=== PATIENT | female | born 1985 ===

== ENCOUNTER 2016-06-21 12:54 | Inpatient (IN) | payer MEDICAID, OTHER ==
[2016-06-21] MEDS ORDERED: IV START KIT ONE (13:06)
[2016-06-21] MEDS ORDERED: LACTATED RINGERS 1,000 ML ONE (13:06)
[2016-06-21] MEDS ORDERED: LIDOCAINE 1% (PRES FREE) 30 ML VIAL ONE (13:06)
[2016-06-21] MEDS ORDERED: OXYTOCIN 10 UNITS/ML VIAL ONE (13:06)
[2016-06-21] MEDS ORDERED: MINERAL OIL 25 ML BOT ONE (13:06)
[2016-06-21] MEDS ORDERED: LIDOCAINE Viscous 2% 15 ML UDCUP ONE (13:06)
[2016-06-21] MEDS ORDERED: PUMP TUBING ONE (13:07)
[2016-06-21] MEDS ORDERED: OXYTOCIN IN LR 500 ML IV ONE ×2 (13:07→14:43)
[2016-06-21 14:10] VITALS: BMI 33.6
[2016-06-21] MEDS ORDERED: LACTATED RINGERS 1,000 ML IV PRN (14:43)
[2016-06-21] MEDS ORDERED: OXYTOCIN IN LR 500 ML IV PRN (14:45)
[2016-06-21] MEDS: LACTATED RINGERS 1,000 ML IV SCH ×2 (15:17→19:51)
[2016-06-21 15:49] LABS: HEMATOCRIT 34.4 % (37.0-47.0); HEMOGLOBIN 11.7 gm/l (12.0-16.0); MEAN CELL VOLUME 96.6 fl (81.0-99.0); MEAN CORPUSCULAR HEMOGLOBIN 32.9 pg (27.0-31.0); RED CELL DISTRIBUTION WIDTH 12.6 % (11.5-14.5)
--- NOTE | 2016-06-21 17:05 | PCMAN ---
OB Admission Note - History : 6 Term: 3 : 0 Abortions (S&E): 2 Livin Gestational Age (weeks): 36 Days (#/7): 6 Admit Cervical Dilation:: 3 Admit Cervical Effacement (%):: 50 Admit Station:: -2 Admit Presentaton:: vertex Membrane Status: Intact Contractions: No Heart Rate:: 140 Status:: cat 1 EFW:: 7 lbs Summary of Course:: care in [place]. Arrived here at 35 weeks. Has cholestasis,and is on actigall. No other complications. Past ob Hx: sab 02/28 term , at 1 years 07/03 41 02/07 27 weeks , cholestasis - Labs Blood Type: O (+) positive Hct/Hgb:: Rubella Status: Immune GBS Status: Negative Abnormal Labs: None - Physical Exam General: Afebrile Psych/Mental Status: Mood/Affect Appropriate Neurological: Alert Lungs: Clear to Auscultation Bilaterally Cardiovascular: Regular Rate and Rhythm Abdomen: Normal Bowel Sounds Genitourinary: Normal Female Genitalia Rectal Exam: Deferred Extremities: Other (nt, no edema) Skin: Normal Color - Problems (1) Cholestasis during in third trimester Status: Acute Code: O26.613Assessment/Plan: IOL at 37 weeks, plan Pitocin (2) Term Status: Acute Code: Z34.80
[2016-06-21] MEDS ORDERED: FENTANYL/ROPIVACAINE EPIDURAL 250 ML EP ONE (19:02)
[2016-06-21] MEDS ORDERED: EPIDURAL PUMP SET ONE (19:02)
[2016-06-21] MEDS ORDERED: EPIDURAL PROCEDURE TRAY ONE (19:31)
[2016-06-21] MEDS ORDERED: SODIUM CHLORIDE 0.9% 500 ML IV PRN (20:00)
[2016-06-21] MEDS ORDERED: LACTATED RINGERS 500 ML IV PRN (20:00)
[2016-06-21] MEDS ORDERED: EPHEDRINE SULFATE 50 MG/ML 1ML VIAL IV PRN (20:00)
[2016-06-21] MEDS ORDERED: FENTANYL/ROPIVACAINE EPIDURAL 250 ML EP SCH (20:00)
[2016-06-21] MEDS ORDERED: METOCLOPRAMIDE HCL 5 MG/ML 2ML VIAL IV PRN (20:00)
[2016-06-21] MEDS ORDERED: NALBUPHINE HCL 20 MG/ML AMP IV PRN (20:00)
[2016-06-21] MEDS ORDERED: DIPHENHYDRAMINE HCL 50 MG/1 ML VIAL IV PRN (20:00)
[2016-06-21] MEDS ORDERED: NALOXONE HCL 0.4 MG/ML VIAL IV PRN (20:00)
[2016-06-21] MEDS ORDERED: LACTATED RINGERS 1,000 ML IV SCH (20:00)
[2016-06-21] MEDS ORDERED: ONDANSETRON 4 MG/2ML 2 ML VIAL IV PRN (20:00)
[2016-06-21] MEDS ORDERED: LANOLIN 50 APPLIC/7G TUBE TP PRN (21:25)
[2016-06-21] MEDS ORDERED: BENZOCAINE/MENTHOL 60 APPLIC/BOT TP PRN (21:25)
--- NOTE | 2016-06-21 21:28 | PCMDEL ---
Delivery Note - Labor 1st stage (hr/min):: 2 hours 3 min 2nd stage (hr/min):: 12 min 3rd stage (hr/min):: 4 min Total (hr/min):: 2 hours 19 min Pushed (hr/min):: 1 min - Delivery Delivery (Date): 06/21/16 Delivery (Time): 21:12 Infant Gender: Female Presentation: Cephalic Umbilical Cord: 3 Vessel Delayed Cord Clamping:: > 3 min 1 Minute Total: 9 5 Minute Total: 9 Placenta:: normal EBL:: 200 ml Perineum:: intact Suture:: n/a Anesthesia/Meds:: epidural Length ROM:: 4 hours Comments:: vigorous female, no complications
[2016-06-22] MEDS: IBUPROFEN 800 MG TABLET PO PRN ×4 (00:15→20:36)
[2016-06-22] MEDS: HYDROCODONE/ACETAMINOPHEN 5/325MG TABLET PO PRN ×4 (01:40→20:36)
[2016-06-22 06:57] LABS: HEMATOCRIT 31.3 % (37.0-47.0); HEMOGLOBIN 10.7 gm/l (12.0-16.0)
[2016-06-22] MEDS: DOCUSATE SODIUM 100 MG CAPSULE PO PRN (07:50)
--- NOTE | 2016-06-22 16:12 | PDOC44 ---
- Subjective Day: 1 Reports Pain Tolerable - Objective Temp Pulse Resp BP Pulse Ox 98.4 F 90 18 94/62 06/22/16 13:54 06/22/16 13:54 06/22/16 13:54 06/22/16 13:54 Lab Results 06/22/16 06/21/16 06:00 15:15 WBC 13.0 H RBC 3.56 L Hgb 10.7 L 11.7 L Hct 31.3 L 34.4 L Plt Count 320 06/21/16 15:15 MCH 32.9 H Current Medications Generic Name Dose Route Start Last Admin Trade Name Freq PRN Reason Stop Dose Admin Acetaminophen/Hydrocodone Bitart 1 - 2 tab 06/21/16 21:25 06/22/16 14:05 [place] 5/325 PO 1 tab Q4H PRN Administration Pain (Moderate) Benzocaine/Menthol 1 applic 06/21/16 21:25 Dermoplast TP PRN PRN Patient Comfort Docusate Sodium 100 mg 06/21/16 21:25 06/22/16 07:50 Colace PO 100 mg DAILY PRN Administration Comfort Emollient Ointment 1 applic 06/21/16 21:25 [id number]-S-Bmzuzs TP PRN PRN sore nipples Ropivacaine/Fentanyl/NS 250 mls @ 0 mls/hr 06/21/16 20:00 06/21/16 19:49 Fentanyl 2 Mcg/Ml + Ropivacaine 0.125% Ep Bag EP 12 mls/hr EPI RAMÓN Administration Protocol Per Protocol Ibuprofen 800 mg 06/21/16 21:25 06/22/16 14:05 Motrin PO 800 mg Q6H PRN Administration Pain (Mild) Sodium Chloride 10 ml 06/21/16 21:25 06/21/16 22:14 Normal Saline 10ml Flush IV 10 ml PRN PRN Administration IV Flush - Physical Exam General: Afebrile Psych/Mental Status: Mood/Affect Appropriate Neurological: Oriented x 4 Lungs: Clear to Auscultation Bilaterally Cardiovascular: Regular Rate and Rhythm Fundus: Firm, Below Umbilicus - Problems:Assessment/Plan (1) Vaginal delivery Status: AcuteAssessment/Plan: Doing well Normal exam Continue routine care Disposition: Stable
[2016-06-23] MEDS: IBUPROFEN 800 MG TABLET PO PRN (05:13)
[2016-06-23] MEDS: HYDROCODONE/ACETAMINOPHEN 5/325MG TABLET PO PRN (05:13)
[2016-06-23] MEDS: DOCUSATE SODIUM 100 MG CAPSULE PO PRN (07:36)
[2016-06-23 07:39] VITALS: BP 77/45
--- NOTE | 2016-06-23 10:22 | PDOC39B ---
Hospital Course: ADMIT DATE: 06/21/16 DISCHARGE DATE: 06/23/16 ADMISSION DIAGNOSES: 36w6d iup, cholestasis of , IOL. PROCEDURES: iol, HISTORY OF PRESENT ILLNESS: 30 year old G6 T3 L2 at 36 weeks 6 days presenting with IOL secondary to cholestasis. HOSPITAL COURSE: The patient was admitted, given pitocin and delivered quickly. By day of discharge the patient is ambulating, eating, voiding, and passing flatus without difficulty. Pain is controlled and lochia is appropriate. She is breast feeding. - Physical Exam Vital Signs: Temp Pulse Resp BP Pulse Ox 98.1 F 72 16 77/45 06/23/16 07:34 06/23/16 07:34 06/23/16 07:34 06/23/16 07:34 General: Afebrile, No Acute Distress Psych/Mental Status: Mood/Affect Appropriate, Bonding Well Lungs: Clear to Auscultation Bilaterally Cardiovascular: Regular Rate and Rhythm, No Murmur Breast: Soft Fundus: Firm, Midline, At Umbilicus Extremities: No Edema Skin: Warm, Dry, No Rash - Discharge Diagnosis (1) Vaginal delivery Status: AcuteAssessment/Plan: Doing well Normal exam Continue routine care dc home today - Discharge Plan Condition: Good Disposition: Home Prescriptions: Docusate Sodium [Colace] 100 mg PO DAILY #30 cap Ibuprofen [IBUPROFEN 600 MG TABLET (SHF)] 1 tab PO Q6H PRN #30 tablet PRN Reason: Pain FERROUS SULFATE (65 Fe) [IRON FERROUS SULFATE 325 MG TABLET (SHF)] 325 mg PO DAILY #30 tab Follow-Up: Saranya Saini MD [Primary Care Provider] - In 6 weeks
== END 2016-06-23 13:55 | disposition home or self-care (01) | DRG 775 ==
LOC: FBC 12:54 → EDSTATUS 07-12 11:45
PROVIDERS: ADMIT Family Medicine; ATTEND Family Medicine
PROC: 10E0XZZ Delivery of Products of Conception, External Approach (ICD-10-PCS; principal; 2016-06-21)
PROC: 3E033VJ Introduction of Other Hormone into Peripheral Vein, Percutaneous Approach (ICD-10-PCS; 2016-06-21)
DX: O26.62 Liver and biliary tract disorders in childbirth (principal); K83.1 Obstruction of bile duct; Z3A.36 36 weeks gestation of pregnancy; Z37.0 Single live birth; O62.3 Precipitate labor